=== PATIENT | male | born 1950 | race Caucasian/White ===

== ENCOUNTER 2020-09-18 05:26 | Inpatient (IN) ==
--- NOTE | 2020-09-12 11:50 | Anesthesiology Consultation ---
Date of Service September 12, 2020 Assessment & Plan (1) Encounter for pre-operative examination: Chart Review Chart Review: Acceptable Risk for Surgery (pending preop Covid testing results ) and Patient NOT seen in Pre Admission Testing Discussed pacemaker with Dr. Boyd- no rep needed- pt has only pacemaker- no noted defibrillator. Per nursing assessment 09/12/20, patient denies any recent travel. No known Covid positive contacts or Covid related symptoms. No known Covid infection in the past 90 days. Pt scheduled for preop Covid testing 09/13/[address] [facility]= will await results. Pt see by cardio 12/14/19= pt seen for routine follow up. Pt has been feeling well overall. Patient describes stable cardiac signs and symptoms. In the fall of 2017, he has been seen by EP to make sure pacemaker settings were optimized in an effort to maximize battery longevity. ECHO in 2018 confirmed presence of normal LV systolic function despite frequent RV pacing. Pt described stable activity tolerance. Plan follow up in one year (around 11/2020) and continue with routine device checks. History Surgery Operation Date: 09/18/20 08:50 Proposed Procedures p Open Repair Ventral Hernia Possible Mesh - Latonia Castillo MD Height/Weight Height: 6 ft Weight: 97.976 kg Allergies Allergy/AdvReac Type Severity Reaction Status Date / Time No Known Allergies Allergy Unknown Verified 09/12/20 10:15 Medications Home Medications Medication Instructions Recorded Confirmed Last Taken aspirin [Aspirin Low Dose] 81 mg PO QAM 06/29/20 09/12/20 06/28/20 atorvastatin 40 mg PO QAM 06/29/20 09/12/20 06/28/20 ezetimibe [Zetia] 10 mg PO QAM 06/29/20 09/12/20 06/28/20 lisinopril 5 mg PO QAM 06/29/20 09/12/20 06/28/20 niacin 1,000 mg PO HS 06/29/20 09/12/20 06/28/20 pantoprazole 40 mg PO QAM 06/29/20 09/12/20 06/28/20 tamsulosin [Flomax] 0.4 mg PO PM 06/29/20 09/12/20 06/28/20 Past Medical History Medical History (Updated 09/12/20 @ 13:37 by Jing Cornejo PA-C) BPH (benign prostatic hyperplasia) CAD (coronary artery disease) Last cardiac cath 2003- showed 2 vessel heart disease with 100% occlusion of RCA and 60% occlusion of mid LAD and 40% stenosis of Cx. Complete heart block "Transient high grade AV block" dx'ed at time of syncope with head trauma. Pt is s/p pacemaker > follows Dr. Lewis Dyslipidemia GERD (gastroesophageal reflux disease) Hypertension Kidney stones passed on own once, litho second time Pacemaker placed November 2017/ Francesca> [employer] > last checked 08/15/20 > follows with Dr. Lewis with [facility] Prediabetes Hgb A1C 6.2 in 04/2020 Pulmonary nodule Multiple. Following with pulmonology - monitoring SAH (subarachnoid hemorrhage) November [address] [facility] ED with syncopal episode resulting in head trauma. Transferred to [facility]. High-grade AV block with assc. hypotension found, ultimately had pacer placed 11/2017. Seizure Pt denies> reports they thought he had one when passed out from AV block until they knew what it was Past Surgical History Surgical History History of arthroscopy left History of cardiac cath 15 yrs ago > no stents History of colonoscopy History of lithotripsy History of tooth extraction History of umbilical hernia repair Hx of laparoscopy for incisional hernia > no longer has mesh SBO (small bowel obstruction) with repair [place] teeth extracted Social History Smoking Status: Never smoker Do You Dip or Chew Tobacco: No Hx Alcohol Use: No Hx Substance Use: No substance use type: does not use Testing Laboratory Results 08/31/20= WBC: 6.25 H/H: 12.6/38.8 PLATELETS: 186 SODIUM: 141 POTASSIUM: 4.1 CHLORIDE: 105 CO2: 27 BUN: 10 CREATININE: 0.9 GLUCOSE: 94 Electrocardiogram Date: 08/31/20 SR at 62bpm. AV sequential or dual chamber electronic pacemaker. Echocardiogram Date: 02/24/18 EF: 55-60% LV Function: normal RWMA: + none Other Findings: + LVH (mild/concentric ) and + diastolic dysfunction (Grade I ) Sigmoid appearing septum. Trileaflet AV with a heavily calcified noncoronary cusp with reduced systolic excursion. No hemodynamically significant stenosis. No AR. Other Testing Pacer check 08/15/20= [employer] Pacemaker. Implanted December 18, 2017. Atrial paced 18%. RV paced 92%. Battery life estimated longevity 10 years. Pacemaker mode VDIR. Summary: "Normal dual chamber pacemaker function. Next Remote Monitoring Transmission is scheduled for 3 months." PET scan 06/07/20= Minimal low level uptake is associated with the largest pulmonary nodule in the medial right lower lobe. Malignant neoplasm cannot be excluded. Nonspecific uptake within right supraclavicular, mediastinal, left hilar and left inguinal lymph nodes. (Pt following with pulm and planning for bronchoscopy after hernia repair per 08/10/20 telephone note) Chest CT 05/25/20= Unchanged appearance of the lungs with multiple (> 20) avelina llate shaped pulmonary nodules oriented along the bronchovascular markings, some of which are tubular branching in expected regions of vasculature. These findings may be due to chronic small airway inflammation, metastasis or vasculitis/small-vessel disease. Couple intermixed ground-glass attenuating nodules are likely of the same etiology, just less dense. Chronic bronchitis.
[2020-09-18] MEDS ORDERED: ceFAZolin 2000MG 2,000 MG/15 ML SYR IV SCH (06:00)
[2020-09-18] MEDS ORDERED: LACTATED RINGER'S 1,000 ML IV SCH ×2 (06:00→06:45)
[2020-09-18] MEDS ORDERED: fentaNYL citrate 100 MCG/2 ML VIAL ONE ×2 (06:39→08:05)
[2020-09-18] MEDS ORDERED: ONDANSETRON INJ 2 MG/ML 2 ML VIAL ONE (06:39)
[2020-09-18] MEDS ORDERED: MIDAZOLAM HCL 1 MG/ML 2ML VIAL ONE (06:39)
[2020-09-18] MEDS ORDERED: LIDOCAINE HCL 2% 2 ML VIAL/AMP(20MG/ML) INFIL ONE (06:39)
[2020-09-18] MEDS ORDERED: PROPOFOL IV EMULSION 10 MG/ML 20 ML VIAL IV ONE (06:39)
[2020-09-18] MEDS ORDERED: HYDROmorphone INJ 1 MG/ML SYRINGE IV PRN ×2 (06:52→10:27)
[2020-09-18] MEDS ORDERED: fentaNYL citrate 100 MCG/2 ML VIAL IV PRN (06:52)
[2020-09-18] MEDS ORDERED: ePHEDrine sulfate 50 MG/ML AMP IV PRN (06:52)
[2020-09-18] MEDS ORDERED: ATROPINE SULFATE 0.1 MG/ML 10ML SYR IV PRN (06:52)
[2020-09-18] MEDS ORDERED: ONDANSETRON INJ 2 MG/ML 2 ML VIAL IV PRN (06:52)
[2020-09-18] MEDS ORDERED: ceFAZolin 2000MG 2,000 MG/15 ML SYR IV ONE (06:55)
--- NOTE | 2020-09-18 06:55 | History & Physical Bridge Note ---
Date of Service September 18, 2020 History & Physical Bridge Note I have examined the patient, reviewed the History & Physical and in the interval since the performance of the History & Physical I have noted the following changes of clinical significance: no changes noted
[2020-09-18] MEDS ORDERED: LIDOCAINE HCL 1% 20 ML VIAL ONE (06:59)
[2020-09-18] MEDS ORDERED: BACITRACIN OINT 15 GM TUBE ONE (06:59)
[2020-09-18] MEDS ORDERED: BUPIVACAINE 0.5 % 5 MG/1 ML MPF 30ML VIAL ONE (06:59)
[2020-09-18] MEDS ORDERED: ALBUTEROL HFA INHALER 8.5 GM ONE (07:21)
[2020-09-18] MEDS ORDERED: NEOSTIGMINE METHYLSULFATE 5 MG/5 ML SYR ONE (07:46)
[2020-09-18] MEDS ORDERED: GLYCOPYRROLATE 0.2 MG/ML VIAL ONE (07:46)
[2020-09-18] MEDS ORDERED: DEXAMETHASONE SOD INJ 4 MG/ML VIAL ONE (07:47)
[2020-09-18] MEDS ORDERED: ROCURONIUM BROMIDE 10 MG/ML 5 ML VIAL IV ONE ×3 (07:55→08:18)
--- NOTE | 2020-09-18 09:21 | Post Operative Brief Note ---
Immediate Post Op Note v1 Date of Surgery September 18, 2020 Pre & Post Diagnosis Operation Date: 09/18/20 07:00 Pre-Op Diagnosis: Recurrent Ventral Incisional Hernia Post-Op Diagnosis: Recurrent Ventral Incisional Hernia I identified the patient and participated in the time-out.: Yes Procedure Operation Date: 09/18/20 07:00 Actual Procedures p Open Ventral Hernia Repair with Mesh(Not Applicable) - Latonia Castillo MD Surgeon Latonia Castillo MD Video Rental Clerk TARIK Mckeon Estimated Blood Loss 20 Findings Consistent with Post-Op Diagnosis recurrent ventral hernia size about 3x4 inches Fluids 1000ml Specimens hernia sac Anesthesia Type General Complications none Disposition Accompanied Patient To Recovery: Yes Disposition: Recovery Room Overlapping Procedure I was immediately available: during the entire case.
--- NOTE | 2020-09-18 09:50 | Anesthesiology Progress Note ---
Date of Service September 18, 2020 Anesthesia Post Procedure Vital Signs Vital Signs: Temp Pulse Pulse Resp BP Pulse Ox 09/18/20 09:45 88 16 119/69 96 09/18/20 09:35 85 21 123/75 94 09/18/20 09:29 36.3 C L 90 16 119/76 96 09/18/20 06:00 36.4 C L 92 H 20 135/83 97 Pain Intensity Abdomen: Pain Intensity: 4 Transfer of Care Handoff Completed per policy Notes Mental Status: alert / awake / arousable and participated in evaluation Patient Amnestic to Procedure: Yes Nausea / Vomiting: adequately controlled Pain: adequately controlled Airway Patency, RR, SpO2: stable & adequate BP & HR: stable & adequate Hydration State: stable & adequate Anesthetic Complications: no major complications apparent and Pt Satisfied with anesthetic care
[2020-09-18] MEDS: LACTATED RINGER'S 1,000 ML IV SCH ×2 (10:15→19:56)
[2020-09-18] MEDS ORDERED: oxyCODONE/ACETAMINOPHEN 5mg/325mg TAB PO PRN ×2 (10:27→11:25)
[2020-09-18] MEDS ORDERED: ACETAMINOPHEN 325 MG TAB PO PRN (11:25)
--- NOTE | 2020-09-18 11:36 | Operative Report (OR) ---
DATE OF OPERATION: 09/18/2020 PREOPERATIVE DIAGNOSIS: Recurrent ventral hernia. POSTOPERATIVE DIAGNOSIS: Recurrent ventral hernia. OPERATION: Open repair of ventral hernia with mesh. SURGEON: Latonia Castillo MD. laboratory chemical assistant: TARIK Mckeon ANESTHESIA: General. ESTIMATED BLOOD LOSS: About 20 mL. FINDINGS: Recurrent ventral hernia, the hernia size about 3 x 4 inch. COMPLICATIONS: None. INDICATIONS FOR THE PROCEDURE: This is a 69-year-old gentleman who had a ventral hernia repair with mesh and later on patient had the mesh removed because of infected mesh, and now the patient presented with recurrent ventral hernia. The patient is required to do open repair of recurrent ventral hernia with mesh. I did talk to the patient about the benefit, the risk, alternate procedure. I indicated the risks may include but not limited to such as bleeding, infection, hernia recurrence, bowel obstruction, fistula, infected mesh, complication related to the mesh, DVT, myocardial infarction, stroke, and even . The patient understands. He signed informed consent and I answered all questions. DETAILS OF PROCEDURE: We brought the patient to the OR, put the patient in the supine position. The patient received SCD on bilateral legs to prevent DVT. Also, patient received 2 grams of Ancef IV for prophylactic antibiotic. The patient received general anesthesia without difficulty and also the patient received Song catheter insertion. The abdomen was prepped and draped in routine sterile fashion. After timeout, we made a transverse incision on the middle abdomen and we got in the abdominal cavity without difficulty. Dissected some scar and then we found the patient actually had 3 ventral hernias, one on the right side, one on the left side and one below the umbilicus. So, there were hernias. Once we opened the hernia sac, we got in the abdomen without difficulty and we reduced all the hernia contents and the small bowel back to abdominal cavity. Now we removed all the hernia sacs. Once we combined the 3 ventral hernias to one, we measured 3 x 4 inches as the hernia size, so I decided to choose 5 x 7 inches mesh for overlapping the hernia. Then, I used 0 Ethibond, sutured the fascia to the hernia interruptedly at 360-degree and then we tied each suture one by one, the mesh sat nicely, no tension. Hemostasis was obtained. I then closed the subcutaneous layer by using 2-0 Vicryl continuous running, closed skin by using staple. Then, we put the dressing on. The patient tolerated the procedure well. All instrument, needle and sponge count were correct x2 at the end of the case. The patient was transferred to recovery room in stable condition and also the specimen was sent to pathology. After the procedure, I did talk to the patient about the OR finding and the procedure we did. Also, the patient agreed to be admitted to the hospital overnight. trade sales assistant Haily is necessary for traction and exposure of this procedure. I attest to the content of the Intraoperative Record and any orders documented therein. Any exceptions are noted below. ADALBERTO
[2020-09-18] MEDS: oxyCODONE/ACETAMINOPHEN 5mg/325mg TAB PO PRN (21:01)
[2020-09-18] MEDS: NIACIN EXTENDED REL 500 MG TABCR PO SCH (21:02)
[2020-09-18] MEDS: DOCUSATE SODIUM 100 MG CAP PO SCH (21:02)
[2020-09-18] MEDS: TAMSULOSIN HCL 0.4 MG CAP PO SCH (21:02)
[2020-09-19 07:43] LABS: Creatinine Clr Calc Pharmacy 123.7 ml/min; Est GFR (African American) 112.3; Est GFR (Non-African American) 96.9
--- NOTE | 2020-09-19 08:08 | Anesthesiology Progress Note ---
Date of Service September 19, 2020 Anesthesia Post Procedure Vital Signs Vital Signs: Temp Pulse Pulse Resp BP BP Pulse Ox 09/19/20 06:58 36.9 C 62 16 125/70 94 09/19/20 04:09 36.6 C 60 18 99/55 L 96 09/18/20 22:26 36.7 C 60 16 116/67 96 09/18/20 19:00 36.5 C 90 20 123/80 96 09/18/20 15:15 36.7 C 88 20 100/64 95 09/18/20 12:15 36.6 C 95 H 18 110/68 92 09/18/20 11:21 18 102/62 91 09/18/20 10:45 36.4 C L 85 16 97/61 L 93 09/18/20 10:15 36.8 C 86 16 95/63 L 93 09/18/20 10:05 80 17 110/57 L 96 09/18/20 09:55 36.2 C L 83 17 109/62 95 09/18/20 09:45 88 16 119/69 96 09/18/20 09:35 85 21 123/75 94 09/18/20 09:29 36.3 C L 90 16 119/76 96 Pain Intensity Abdomen: Pain Intensity: 2 Notes Mental Status: alert / awake / arousable and participated in evaluation Patient Amnestic to Procedure: Yes Nausea / Vomiting: see Notes below Pain: adequately controlled Airway Patency, RR, SpO2: stable & adequate BP & HR: stable & adequate Hydration State: stable & adequate Anesthetic Complications: no major complications apparent and Pt Satisfied with anesthetic care
[2020-09-19] MEDS: EZETIMIBE 10 MG TABLET PO SCH (09:19)
[2020-09-19] MEDS: DOCUSATE SODIUM 100 MG CAP PO SCH ×2 (09:19→20:52)
[2020-09-19] MEDS: PANTOprazole 40 MG TAB PO SCH (09:19)
[2020-09-19] MEDS: ASPIRIN 81 MG ECTAB PO SCH (09:19)
[2020-09-19] MEDS: ATORVASTATIN 40 MG TAB PO SCH (09:19)
[2020-09-19] MEDS: lisinopril 5 MG TAB PO SCH (09:19)
--- NOTE | 2020-09-19 09:37 | Surgery Progress Note ---
Date of Service F/U S/P open repair large ventral hernia with mesh, pt is doing better, still have some incision pain, pt denies fever, September 19, 2020 Assessment & Plan (1) Incisional hernia: pt is a 69 year-old male who was admitted to hospital is post-op open repair large ventral hernia with mesh, IMP: S/P open repair large ventral hernia with mesh, POD 1, I update about OR finding and the procedure pt had, pt understood, I answered all questions, pt is doing better, less incision pain, pt will stay one more day for good control incision pain, OOB discharge home tomorrow, will F/U, Present on Admission?: Yes Admission and Anticipated Discharge Date Admission Date: September 18, 2020 Physical Exam Constitutional: WD/WN, vitals as above well developed and well nourished Eyes: PERRL, conjunctivae normal, anicteric sclerae ENMT: external ear and nose normal, oropharynx normal Neck: trachea midline, no thyromegaly Respiratory: normal respiratory effort, lungs clear to auscultation Cardiovascular: RRR, no murmur, no edema Rate/Rhythm: regular rate and regular rhythm Gastrointestinal (Abdomen): Percussion/Palpation: abdomen soft mild tenderness at abdomen, no rebound pain, the incision intact, no redness, no drainage, Musculoskeletal: no cyanosis or clubbing, extremities motor strength 5/5 Skin: no rashes, warm and dry Neurologic: patellar DTR's 2+ bilat, sensation intact Psychiatric: Orientation: alert and oriented x 3 Results & Data ([facility]) Vital Signs (Past 12 Hours) Vital Signs Temp Pulse Resp BP Pulse Ox 09/19/20 06:58 36.9 C 62 16 125/70 94 09/19/20 04:09 36.6 C 60 18 99/55 L 96 09/18/20 22:26 36.7 C 60 16 116/67 96
[2020-09-19] MEDS ORDERED: POLYETHYLENE (MIRALAX) 17 GM PACK PO SCH (09:45)
[2020-09-19] MEDS ORDERED: ENOXAPARIN INJ 40 MG/0.4 ML SYR SQ SCH (12:00)
[2020-09-19] MEDS: LACTATED RINGER'S 1,000 ML IV SCH (14:14)
[2020-09-19] MEDS ORDERED: METOCLOPRAMIDE HCL 10 MG TABLET PO ONE (19:30)
[2020-09-19] MEDS: NIACIN EXTENDED REL 500 MG TABCR PO SCH (20:52)
[2020-09-19] MEDS: TAMSULOSIN HCL 0.4 MG CAP PO SCH (20:53)
[2020-09-19] MEDS: ONDANSETRON INJ 2 MG/ML 2 ML VIAL IV PRN (23:45)
[2020-09-20] MEDS: LACTATED RINGER'S 1,000 ML IV SCH (01:45)
[2020-09-20] MEDS: HYDROmorphone INJ 1 MG/ML SYRINGE IV PRN ×2 (01:49→11:45)
[2020-09-20] MEDS: ONDANSETRON INJ 2 MG/ML 2 ML VIAL IV PRN (06:02)
[2020-09-20 07:14] LABS: Basophils # (auto) 0.02 K/uL (0-0.2); Basophils % (auto) 0.2 %; Eosinophils # (auto) 0.03 K/uL (0-0.5); Eosinophils % (auto) 0.3 %; Hematocrit (blood only) 39.4 % (42-52); Immature Granulocytes # (auto) 0.02 K/uL (0.00-0.02); Immature Granulocytes % (auto) 0.2 %; Lymphocytes # (auto) 0.74 K/uL (1.2-3.4); Lymphocytes % (auto) 6.7 %; Mean Corpuscular Hemoglobin 27.8 pg (25-34); Mean Corpuscular Volume 84.2 fL (80-100); Mean Platelet Volume 9.7 fL (7.4-10.4); Monocytes # (auto) 0.71 K/uL (0.11-0.59); Monocytes % (auto) 6.4 %; Neutrophils # (auto) 9.53 K/uL (1.4-6.5); Neutrophils % (auto) 86.2 %; Platelet Count 206 K/uL (130-400); RDW Coefficient of Variation 14.8 % (11.5-14.5); RDW Standard Deviation 46.1 fL (36.4-46.3); Red Blood Count 4.68 M/uL (4.7-6.1); White Blood Count 11.05 K/uL (4.8-10.8)
--- NOTE | 2020-09-20 07:32 | Surgery Progress Note ---
Date of Service F/U S/P open repair large ventral hernia with mesh, POD 2 pt had 2 time small vomiting, not pass gas or BM yet, pt has no significant abdominal pain, no fever, September 20, 2020 Assessment & Plan (1) Incisional hernia: pt is a 69 year-old male who was admitted to hospital is post-op open repair large ventral hernia with mesh, IMP: S/P open repair large ventral hernia with mesh, POD 1, I update about OR finding and the procedure pt had, pt understood, I answered all questions, pt is doing better, less incision pain, pt will stay one more day for good control incision pain, OOB discharge home tomorrow, will F/U, 09/20/2020 7:27AM F/U S/P open repair large ventral hernia with mesh POD 2 pt developed post-op ileus /bowel obstruction, conservative treatment first, NPO, IV fluid, NG tube, I informed pt that he developed ileus or bowel obstruction possible caused by old scar, may need surgery treatment if conservative treatment failure, pt understood, he agrees with the treatment plan, I answered all questions, I insert NG tube some fluid came out, pt tolerated well, will F/U Admission and Anticipated Discharge Date Admission Date: September 18, 2020 Physical Exam Constitutional: WD/WN, vitals as above well developed and well nourished Eyes: PERRL, conjunctivae normal, anicteric sclerae ENMT: external ear and nose normal, oropharynx normal Neck: trachea midline, no thyromegaly Respiratory: normal respiratory effort, lungs clear to auscultation Cardiovascular: RRR, no murmur, no edema Rate/Rhythm: regular rate and regular rhythm Gastrointestinal (Abdomen): Percussion/Palpation: abdomen soft mild distend, mild tenderness, no rebound pain, the incision intact, no redness, BS + Musculoskeletal: no cyanosis or clubbing, extremities motor strength 5/5 Skin: no rashes, warm and dry Neurologic: patellar DTR's 2+ bilat, sensation intact Psychiatric: Orientation: alert and oriented x 3 Results & Data ([facility]) Vital Signs (Past 12 Hours) Vital Signs Temp Pulse Pulse Resp BP Pulse Ox 09/20/20 07:03 36.8 C 101 H 18 112/71 94 09/19/20 22:52 36.6 C 90 20 107/68 94 Laboratory Results Abnormal lab results 09/20/20 Range/Units 06:55 WBC 11.05 H (4.8-10.8) K/uL RBC 4.68 L (4.7-6.1) M/uL Hgb 13.0 L (14.0-18.0) g/dL Hct 39.4 L (42-52) % RDW Coeff of [place] 14.8 H (11.5-14.5) % Neut # (Auto) 9.53 H (1.4-6.5) K/uL Lymph # (Auto) 0.74 L (1.2-3.4) K/uL [place] # (Auto) 0.71 H (0.11-0.59) K/uL Diagnostic Findings KUB_ ileus, small bowel dilatation
[2020-09-20 07:43] LABS: Albumin Level 3.2 gm/dl (3.4-5.0); Calcium 8.9 mg/dl (8.5-10.1); Creatinine Clr Calc Pharmacy 121.9 ml/min; Est GFR (African American) 111.6; Est GFR (Non-African American) 96.3; Potassium 3.7 mmol/L (3.5-5.1)
[2020-09-20 07:46] LABS: Albumin Globulin Ratio 0.9 (0.9-2); Bilirubin,Total 1.2 mg/dl (0.2-1); Globulin 3.5 gm/dl (2.5-4.0); Total Protein 6.7 gm/dl (6.4-8.2)
--- NOTE | 2020-09-20 07:53 | XRay Report ---
KUB HISTORY: Vomiting COMPARISON: Abdomen and pelvis CT 06/29/2020. FINDINGS: Dilated gas-filled loops of large and small bowel are seen throughout the abdomen. There ar e mid abdominal skin shamar noted suggesting recent postoperative change. There is gas within the re ctum. Therefore, these findings favor a postoperative ileus. Large amount of stool within the proxima l colon is also noted. No renal calculi. No ureteral calculi. No pneumoperitoneum or pneumatosis. IMPRESSION: Dilated gas-filled loops of large and small bowel seen throughout the abdomen. Findings favor a posto perative ileus. ACT 112: Negative or not required by law. Electronically signed by: Meir Mendez M.D. 09/20/2020 7:52 AM
[2020-09-20] MEDS: ceFAZolin 1000MG 1,000 MG/7.5 ML SYR IV SCH ×2 (09:02→16:27)
[2020-09-20] MEDS: D5W AND 1/2NSS + 20MEQ KCL 20 MEQ/1,000 ML BAG IV SCH ×2 (09:02→18:09)
[2020-09-20] MEDS ORDERED: Nursing to Pharmacy Communication SCH (10:30)
[2020-09-20] MEDS: lisinopril 5 MG TAB PO SCH (11:33)
[2020-09-20] MEDS: EZETIMIBE 10 MG TABLET PO SCH (11:34)
[2020-09-20] MEDS: DOCUSATE SODIUM 100 MG CAP PO SCH (11:35)
[2020-09-20] MEDS: ASPIRIN 81 MG ECTAB PO SCH (11:35)
[2020-09-20] MEDS: ATORVASTATIN 40 MG TAB PO SCH (11:35)
[2020-09-20] MEDS: PANTOprazole 40 MG TAB PO SCH (11:36)
[2020-09-20] MEDS: DOCUSATE SODIUM SYRUP 100 MG/10 ML UDC NG SCH ×2 (12:13→21:02)
[2020-09-20] MEDS: ASPIRIN 81 MG CHEW NG SCH (12:13)
[2020-09-20] MEDS: LANSOPRAZOLE 30 MG SOLTAB NG SCH (12:14)
[2020-09-20] MEDS: ATORVASTATIN 40 MG TAB NG SCH (12:15)
[2020-09-20] MEDS ORDERED: bisacodyL 10 MG SUPP PR STA (16:18)
--- NOTE | 2020-09-20 16:21 | Surgery Progress Note ---
Date of Service pt is doing better, no significant abdominal pain, NG 300ml, September 20, 2020 Assessment & Plan (1) Incisional hernia: pt is a 69 year-old male who was admitted to hospital is post-op open repair large ventral hernia with mesh, IMP: S/P open repair large ventral hernia with mesh, POD 1, I update about OR finding and the procedure pt had, pt understood, I answered all questions, pt is doing better, less incision pain, pt will stay one more day for good control incision pain, OOB discharge home tomorrow, will F/U, 09/20/2020 7:27AM F/U S/P open repair large ventral hernia with mesh POD 2 pt developed post-op ileus /bowel obstruction, conservative treatment first, NPO, IV fluid, NG tube, I informed pt that he developed ileus or bowel obstruction possible caused by old scar, may need surgery treatment if conservative treatment failure, pt understood, he agrees with the treatment plan, I answered all questions, I insert NG tube some fluid came out, pt tolerated well, will F/U 09/20/2020 4:22PM. KUB_IMPRESSION: Dilated gas-filled loops of large and small bowel seen throughout the abdomen. Findings favor a postoperative ileus. doing better, continue treatment, repeat labs in am, will F/U Admission and Anticipated Discharge Date Admission Date: September 20, 2020 Physical Exam Constitutional: WD/WN, vitals as above well developed and well nourished Eyes: PERRL, conjunctivae normal, anicteric sclerae ENMT: external ear and nose normal, oropharynx normal Neck: trachea midline, no thyromegaly Respiratory: normal respiratory effort, lungs clear to auscultation Cardiovascular: RRR, no murmur, no edema Rate/Rhythm: regular rate and regular rhythm Gastrointestinal (Abdomen): Percussion/Palpation: abdomen soft mild distend, no rebound pain, BS + Musculoskeletal: no cyanosis or clubbing, extremities motor strength 5/5 Skin: no rashes, warm and dry Neurologic: patellar DTR's 2+ bilat, sensation intact Psychiatric: Orientation: alert and oriented x 3 Results & Data ([facility]) Vital Signs (Past 12 Hours) Vital Signs Temp Pulse Resp BP Pulse Ox 09/20/20 15:06 36.6 C 76 18 103/70 92 09/20/20 07:03 36.8 C 101 H 18 112/71 94
[2020-09-20] MEDS: oxyCODONE/ACETAMINOPHEN 5mg/325mg TAB PO PRN ×2 (18:14→21:37)
[2020-09-20] MEDS: NIACIN EXTENDED REL 500 MG TABCR PO SCH (19:34)
[2020-09-20] MEDS: TAMSULOSIN HCL 0.4 MG CAP PO SCH (19:34)
[2020-09-21] MEDS: ceFAZolin 1000MG 1,000 MG/7.5 ML SYR IV SCH ×3 (00:07→15:36)
[2020-09-21] MEDS: HYDROmorphone INJ 1 MG/ML SYRINGE IV PRN (00:41)
[2020-09-21] MEDS: D5W AND 1/2NSS + 20MEQ KCL 20 MEQ/1,000 ML BAG IV SCH ×2 (04:29→15:04)
[2020-09-21] MEDS: oxyCODONE/ACETAMINOPHEN 5mg/325mg TAB PO PRN (05:46)
[2020-09-21 05:53] LABS: Basophils # (auto) 0.02 K/uL (0-0.2); Basophils % (auto) 0.2 %; Eosinophils # (auto) 0.29 K/uL (0-0.5); Eosinophils % (auto) 3.1 %; Hematocrit (blood only) 39.4 % (42-52); Hemoglobin 13.4 g/dL (14.0-18.0); Immature Granulocytes # (auto) 0.02 K/uL (0.00-0.02); Immature Granulocytes % (auto) 0.2 %; Lymphocytes # (auto) 0.67 K/uL (1.2-3.4); Lymphocytes % (auto) 7.1 %; Mean Corpuscular Hemoglobin 28.8 pg (25-34); Mean Corpuscular Volume 84.5 fL (80-100); Monocytes # (auto) 1.41 K/uL (0.11-0.59); Neutrophils # (auto) 6.99 K/uL (1.4-6.5); Neutrophils % (auto) 74.4 %; Platelet Count 207 K/uL (130-400); RDW Coefficient of Variation 14.9 % (11.5-14.5); RDW Standard Deviation 46.6 fL (36.4-46.3); Red Blood Count 4.66 M/uL (4.7-6.1)
[2020-09-21 06:24] LABS: BUN Creatinine Ratio 17.9 (10-20); Calcium 8.7 mg/dl (8.5-10.1); Creatinine Clr Calc Pharmacy 131.3 ml/min; Est GFR (African American) 115.1; Est GFR (Non-African American) 99.3; Potassium 4.1 mmol/L (3.5-5.1)
[2020-09-21 06:26] LABS: Albumin Globulin Ratio 0.9 (0.9-2); Bilirubin,Total 0.9 mg/dl (0.2-1); Globulin 3.5 gm/dl (2.5-4.0); Total Protein 6.5 gm/dl (6.4-8.2)
--- NOTE | 2020-09-21 08:24 | XRay Report ---
KUB HISTORY: Acute generalized abdominal pain with abdominal distention To R/O ileus COMPARISON: KUB 09/20/2020 FINDINGS: Transversely oriented skin shamar of the lower abdomen redemonstrated. An enteric tube pro jects over the left midabdomen the expected location of the distended mid to distal gastric body. Dis tended loops of large and small bowel redemonstrated with large bowel loops measuring up to approxima tely 11 cm, previously 10 cm. No renal calculi. No ureteral calculi. No pneumoperitoneum or pneumato sis. No fracture. IMPRESSION: Persistent gaseous distention of both large and small bowel suggestive of postoperative ileus. ACT 112: Negative or not required by law. The above report was generated using voice recognition software. It may contain grammatical, syntax o r spelling errors. Electronically signed by: Cruz Hernández M.D. 09/21/2020 8:22 AM
[2020-09-21] MEDS ORDERED: METOCLOPRAMIDE HCL INJ 5 MG/ML 2 ML VIAL IV STA (09:12)
[2020-09-21] MEDS: ATORVASTATIN 40 MG TAB NG SCH (09:33)
[2020-09-21] MEDS: DOCUSATE SODIUM SYRUP 100 MG/10 ML UDC NG SCH ×2 (09:33→20:28)
[2020-09-21] MEDS: ASPIRIN 81 MG CHEW NG SCH (09:34)
[2020-09-21] MEDS: LANSOPRAZOLE 30 MG SOLTAB NG SCH (09:34)
[2020-09-21] MEDS: lisinopril 5 MG TAB PO SCH (09:34)
[2020-09-21] MEDS: EZETIMIBE 10 MG TABLET PO SCH (09:34)
--- NOTE | 2020-09-21 13:00 | Surgery Progress Note ---
Date of Service pt is doing better, passed BM last night, no nausea, no vomiting, NG tube- 550ml. September 21, 2020 Assessment & Plan (1) Incisional hernia: pt is a 69 year-old male who was admitted to hospital is post-op open repair large ventral hernia with mesh, IMP: S/P open repair large ventral hernia with mesh, POD 1, I update about OR finding and the procedure pt had, pt understood, I answered all questions, pt is doing better, less incision pain, pt will stay one more day for good control incision pain, OOB discharge home tomorrow, will F/U, 09/20/2020 7:27AM F/U S/P open repair large ventral hernia with mesh POD 2 pt developed post-op ileus /bowel obstruction, conservative treatment first, NPO, IV fluid, NG tube, I informed pt that he developed ileus or bowel obstruction possible caused by old scar, may need surgery treatment if conservative treatment failure, pt understood, he agrees with the treatment plan, I answered all questions, I insert NG tube some fluid came out, pt tolerated well, will F/U 09/20/2020 4:22PM. KUB_IMPRESSION: Dilated gas-filled loops of large and small bowel seen throughout the abdomen. Findings favor a postoperative ileus. doing better, continue treatment, repeat labs in am, will F/U 09/21/2020 1:00PM doing better, passed BM, continue treatment, keep the NG tube for one more day, will F/U Admission and Anticipated Discharge Date Admission Date: September 20, 2020 Physical Exam Constitutional: WD/WN, vitals as above well developed and well nourished Eyes: PERRL, conjunctivae normal, anicteric sclerae ENMT: external ear and nose normal, oropharynx normal Neck: trachea midline, no thyromegaly Respiratory: normal respiratory effort, lungs clear to auscultation Cardiovascular: RRR, no murmur, no edema Rate/Rhythm: regular rate and regular rhythm Gastrointestinal (Abdomen): normal bowel sounds, soft, nontender, no hepatosplenomegaly Percussion/Palpation: abdomen soft NT, ND BS + Musculoskeletal: no cyanosis or clubbing, extremities motor strength 5/5 Skin: no rashes, warm and dry Neurologic: patellar DTR's 2+ bilat, sensation intact Psychiatric: Orientation: alert and oriented x 3 Results & Data ([facility]) Vital Signs (Past 12 Hours) Vital Signs Temp Pulse Resp BP Pulse Ox 09/21/20 07:27 36.6 C 79 18 117/74 94 Laboratory Results Abnormal lab results 09/21/20 09/21/20 Range/Units 05:24 05:24 RBC 4.66 L (4.7-6.1) M/uL Hgb 13.4 L (14.0-18.0) g/dL Hct 39.4 L (42-52) % RDW Std Deviation 46.6 H (36.4-46.3) fL RDW Coeff of [place] 14.9 H (11.5-14.5) % Neut # (Auto) 6.99 H (1.4-6.5) K/uL Lymph # (Auto) 0.67 L (1.2-3.4) K/uL [place] # (Auto) 1.41 H (0.11-0.59) K/uL Sodium 135 L (136-145) mmol/L Glucose 121 H (70-99) mg/dl AST 14 L (15-37) U/L Albumin 3.0 L (3.4-5.0) gm/dl Diagnostic Findings KUB HISTORY: Acute generalized abdominal pain with abdominal distention To R/O ileus COMPARISON: KUB 09/20/2020 FINDINGS: Transversely oriented skin shamar of the lower abdomen redemonstrated. An enteric tube projects over the left midabdomen the expected l ocation of the distended mid to distal gastric body. Distended loops of large and small bowel redemonstrated with large bowel loops measuring up to approximately 11 cm, previously 10 cm. No renal calculi. No ureteral calculi. No pneumoperitoneum or pneumatosis. No fracture. IMPRESSION: Persistent gaseous distention of both large and small bowel suggestive of postoperative ileus.
[2020-09-21] MEDS: ACETAMINOPHEN 325 MG TAB PEG PRN (17:53)
[2020-09-21] MEDS: NIACIN EXTENDED REL 500 MG TABCR PO SCH (20:31)
[2020-09-21] MEDS: TAMSULOSIN HCL 0.4 MG CAP PO SCH (20:31)
[2020-09-22] MEDS: ceFAZolin 1000MG 1,000 MG/7.5 ML SYR IV SCH ×4 (00:07→23:17)
[2020-09-22] MEDS: ACETAMINOPHEN 325 MG TAB PEG PRN (00:20)
[2020-09-22] MEDS: D5W AND 1/2NSS + 20MEQ KCL 20 MEQ/1,000 ML BAG IV SCH ×3 (00:24→20:46)
[2020-09-22] MEDS: DOCUSATE SODIUM SYRUP 100 MG/10 ML UDC NG SCH ×2 (07:53→20:46)
[2020-09-22] MEDS: ATORVASTATIN 40 MG TAB NG SCH (07:54)
[2020-09-22] MEDS: ASPIRIN 81 MG CHEW NG SCH (07:54)
[2020-09-22] MEDS: lisinopril 5 MG TAB PO SCH (07:56)
[2020-09-22] MEDS: LANSOPRAZOLE 30 MG SOLTAB NG SCH (07:56)
[2020-09-22] MEDS: EZETIMIBE 10 MG TABLET PO SCH (07:57)
[2020-09-22 08:52] LABS: Basophils # (auto) 0.01 K/uL (0-0.2); Basophils % (auto) 0.1 %; Eosinophils # (auto) 0.27 K/uL (0-0.5); Hematocrit (blood only) 37.9 % (42-52); Hemoglobin 12.8 g/dL (14.0-18.0); Immature Granulocytes # (auto) 0.01 K/uL (0.00-0.02); Immature Granulocytes % (auto) 0.1 %; Lymphocytes # (auto) 0.69 K/uL (1.2-3.4); Lymphocytes % (auto) 7.6 %; Mean Corpuscular Hemoglobin 28.1 pg (25-34); Mean Corpuscular Hgb Conc 33.8 g/dL (32-36); Mean Corpuscular Volume 83.1 fL (80-100); Mean Platelet Volume 9.4 fL (7.4-10.4); Monocytes # (auto) 1.01 K/uL (0.11-0.59); Monocytes % (auto) 11.1 %; Neutrophils # (auto) 7.11 K/uL (1.4-6.5); Neutrophils % (auto) 78.1 %; Platelet Count 182 K/uL (130-400); RDW Coefficient of Variation 14.5 % (11.5-14.5); Red Blood Count 4.56 M/uL (4.7-6.1)
[2020-09-22 09:12] LABS: BUN Creatinine Ratio 10.4 (10-20); Calcium 8.8 mg/dl (8.5-10.1); Creatinine Clr Calc Pharmacy 142.3 ml/min; Est GFR (African American) 118.9; Est GFR (Non-African American) 102.6; Potassium 3.9 mmol/L (3.5-5.1)
[2020-09-22] MEDS ORDERED: CHLORASEPTIC 1.4% SOLN 180 ML BTL MT PRN (10:46)
--- NOTE | 2020-09-22 10:54 | Surgery Progress Note ---
Date of Service September 22, 2020 Assessment & Plan (1) Incisional hernia: POD # 4 s/p open repair of recurrent incisional hernia with mesh - minimal pain - abdomen soft but still distended - + bowel function today - NGT with clear output, 200 cc last shift Plan: Tylenol prn pain , limit narcotics clear diet for now pulled out NGT encouraged OOB to chair and ambulation as much as possible to increase GI motility science and operations officer surgeon cover this weekend, thanks, (2) Postoperative ileus: plan as above Dr. Castillo to evaluate pt this afternoon. Admission and Anticipated Discharge Date Admission Date: September 20, 2020 Subjective feeling okay not much pain just pressure and bloating no nausea or vomiting passed gas and liquid stool this morning but not much since has not ambulated hallway today yet Physical Exam Constitutional: WD/WN, vitals as above well developed and well nourished; no acute distress Eyes: PERRL, conjunctivae normal, anicteric sclerae ENMT: external ear and nose normal, oropharynx normal Neck: trachea midline, no thyromegaly Respiratory: normal respiratory effort, lungs clear to auscultation normal respiratory effort; no respiratory distress and no labored breathing Cardiovascular: RRR, no murmur, no edema Rate/Rhythm: regular rate and regular rhythm Gastrointestinal (Abdomen): normal bowel sounds, soft, nontender, no hepatosplenomegaly Inspection/Auscultation: + abdomen distended, + abdominal surgical incision (covered with dry clean dressing) and + hypoactive bowel sounds (some present in lower quadrants bilaterally) Percussion/Palpation: abdomen soft no tenderness, the incision intact, Musculoskeletal: no cyanosis or clubbing, extremities motor strength 5/5 Skin: no rashes, warm and dry Neurologic: patellar DTR's 2+ bilat, sensation intact Psychiatric: A+Ox3, euthymic affect Orientation: alert and oriented x 3 Results & Data ([facility]) Vital Signs (Past 12 Hours) Vital Signs Temp Pulse Resp BP Pulse Ox 09/22/20 07:06 36.6 C 87 16 135/78 96 Laboratory Results Abnormal lab results 09/22/20 09/22/20 Range/Units 08:41 08:41 RBC 4.56 L (4.7-6.1) M/uL Hgb 12.8 L (14.0-18.0) g/dL Hct 37.9 L (42-52) % Neut # (Auto) 7.11 H (1.4-6.5) K/uL Lymph # (Auto) 0.69 L (1.2-3.4) K/uL Hooker # (Auto) 1.01 H (0.11-0.59) K/uL BUN 6 L D (7-18) mg/dl Glucose 115 H (70-99) mg/dl
--- NOTE | 2020-09-22 13:04 | XRay Report ---
KUB HISTORY: f/u postop ileus COMPARISON: KUB 09/21/2020. FINDINGS: Lower abdominal skin shamar are again noted. Nasogastric tube terminates in the gastric an trum. Pacemaker wires are again noted. Redemonstration of the distended loops of large and small padmini l. The similar to prior study. The large bowel measures up to 11 cm in diameter. There is a large opal unt of stool within the proximal colon. There is gas seen within the rectum. No renal calculi. No ur eteral calculi. No pneumoperitoneum or pneumatosis. IMPRESSION: No change in the markedly distended loops of large and small bowel. ACT 112: Negative or not required by law. Electronically signed by: Meir Mendez M.D. 09/22/2020 1:03 PM
[2020-09-22] MEDS: TAMSULOSIN HCL 0.4 MG CAP PO SCH (20:46)
[2020-09-22] MEDS: NIACIN EXTENDED REL 500 MG TABCR PO SCH (20:46)
[2020-09-22] MEDS ORDERED: Nursing to Pharmacy Communication SCH (21:15)
[2020-09-23] MEDS: D5W AND 1/2NSS + 20MEQ KCL 20 MEQ/1,000 ML BAG IV SCH ×2 (05:50→16:43)
[2020-09-23] MEDS: LANSOPRAZOLE 30 MG SOLTAB PO SCH (08:31)
[2020-09-23] MEDS: ATORVASTATIN 40 MG TAB PO SCH (08:31)
[2020-09-23] MEDS: EZETIMIBE 10 MG TABLET PO SCH (08:32)
[2020-09-23] MEDS: ASPIRIN 81 MG CHEW PO SCH (08:32)
[2020-09-23] MEDS: lisinopril 5 MG TAB PO SCH (08:32)
[2020-09-23] MEDS: DOCUSATE SODIUM 100 MG CAP PO SCH (09:14)
--- NOTE | 2020-09-23 09:29 | Surgery Progress Note ---
Date of Service September 23, 2020 Assessment & Plan (1) Postoperative ileus: s/p incisional hernia repair. Bowel function is slowly returning. Distention improved. Will advance to full liquid diet today. Continue to encourage activity/ walking. Present on Admission?: Yes (2) Incisional hernia: s/p repair. Admission and Anticipated Discharge Date Admission Date: September 20, 2020 Subjective Feeling much better. Had multiple loose stools yesterday. Passing more flatus. Tolerating the clear liquids. Pain control is fine. Review of Systems Review of Systems: All systems reviewed & are unremarkable except as noted in HPI & below Physical Exam Constitutional: WD/WN, vitals as above Eyes: PERRL, conjunctivae normal, anicteric sclerae Respiratory: normal respiratory effort, lungs clear to auscultation Cardiovascular: RRR, no murmur, no edema Gastrointestinal (Abdomen): Inspection/Auscultation: abdomen normal to inspection, + abdomen distended, normal bowel sounds and + abdominal surgical incision (clean and intact) Percussion/Palpation: abdomen soft; abdomen nontender and no guarding Neurologic: CN's II-XI intact bilaterally Psychiatric: A+Ox3, euthymic affect Results & Data ([facility]) Vital Signs (Past 12 Hours) Vital Signs Temp Pulse Pulse Resp BP BP Pulse Ox 09/23/20 07:53 36.7 C 78 18 125/77 95 09/22/20 22:40 36.6 C 80 18 136/79 94
[2020-09-23] MEDS: NIACIN EXTENDED REL 500 MG TABCR PO SCH (20:40)
[2020-09-23] MEDS: TAMSULOSIN HCL 0.4 MG CAP PO SCH (20:40)
[2020-09-23] MEDS: ACETAMINOPHEN 325 MG TAB PO PRN (20:41)
[2020-09-24] MEDS: D5W AND 1/2NSS + 20MEQ KCL 20 MEQ/1,000 ML BAG IV SCH ×3 (02:32→23:49)
[2020-09-24] MEDS: ACETAMINOPHEN 325 MG TAB PO PRN ×2 (03:06→21:48)
[2020-09-24 06:27] LABS: Creatinine Clr Calc Pharmacy 174.2 ml/min; Est GFR (African American) 129.2; Est GFR (Non-African American) 111.5
[2020-09-24] MEDS: EZETIMIBE 10 MG TABLET PO SCH (08:24)
[2020-09-24] MEDS: lisinopril 5 MG TAB PO SCH (08:24)
[2020-09-24] MEDS: DOCUSATE SODIUM 100 MG CAP PO SCH ×2 (08:24→20:20)
[2020-09-24] MEDS: LANSOPRAZOLE 30 MG SOLTAB PO SCH (08:24)
[2020-09-24] MEDS: ATORVASTATIN 40 MG TAB PO SCH (08:25)
[2020-09-24] MEDS: ASPIRIN 81 MG CHEW PO SCH (08:25)
--- NOTE | 2020-09-24 10:51 | Surgery Progress Note ---
Date of Service September 24, 2020 Assessment & Plan (1) Postoperative ileus: Improving but still distended. Will keep on full liquids today. Continue to encourage activity. Present on Admission?: Yes Admission and Anticipated Discharge Date Admission Date: September 20, 2020 Subjective Feels well. Walking in hallway. Continues to pass flatus and having bowel movements. Tolerated full liquid diet but still distended. No complaints of pain, just expected soreness at incision. Review of Systems Review of Systems: All systems reviewed & are unremarkable except as noted in HPI & below Physical Exam Constitutional: WD/WN, vitals as above Respiratory: normal respiratory effort, lungs clear to auscultation Cardiovascular: RRR, no murmur, no edema Gastrointestinal (Abdomen): Inspection/Auscultation: abdomen normal to inspection, + abdomen distended, normal bowel sounds and + abdominal surgical incision (clean and intact) Percussion/Palpation: abdomen soft; abdomen nontender and no guarding Neurologic: moves all extremities Psychiatric: A+Ox3, euthymic affect Results & Data ([facility]) Vital Signs (Past 12 Hours) Vital Signs Temp Pulse Resp BP Pulse Ox 09/24/20 07:46 36.2 C L 76 18 127/67 96 Laboratory Results Abnormal lab results 09/24/20 Range/Units 05:44 Creatinine 0.49 L (0.6-1.4) mg/dl
[2020-09-24] MEDS: TAMSULOSIN HCL 0.4 MG CAP PO SCH (20:20)
[2020-09-24] MEDS: NIACIN EXTENDED REL 500 MG TABCR PO SCH (20:20)
[2020-09-25] MEDS: LANSOPRAZOLE 30 MG SOLTAB PO SCH (08:58)
[2020-09-25] MEDS: ASPIRIN 81 MG CHEW PO SCH (08:58)
[2020-09-25] MEDS: DOCUSATE SODIUM 100 MG CAP PO SCH (08:58)
[2020-09-25] MEDS: lisinopril 5 MG TAB PO SCH (08:59)
[2020-09-25] MEDS: ATORVASTATIN 40 MG TAB PO SCH (08:59)
[2020-09-25] MEDS: EZETIMIBE 10 MG TABLET PO SCH (09:00)
[2020-09-25] MEDS: D5W AND 1/2NSS + 20MEQ KCL 20 MEQ/1,000 ML BAG IV SCH (09:05)
--- NOTE | 2020-09-25 09:33 | Surgery Progress Note ---
Date of Service September 25, 2020 Assessment & Plan (1) Incisional hernia: POD # 7 s/p repair of recurrent incisional hernia with mesh - pain minimal - distention improving - + bowel function, no n/v Plan: Okay to advance to low fiber diet for lunch continue to ambulate discontinue IV fluids Tylenol prn pain (has not required any narcotics) possible discharge home this evening (2) Postoperative ileus: Improving but still distended. Plan as above Dr. Castillo has seen patient independantly and agrees with above. Admission and Anticipated Discharge Date Admission Date: September 20, 2020 Subjective feeling good passing gas and liquid bowel movements no abdominal pain, has not required narcotic pain medication tolerated full liquids yesterday, no n/v no chest pain/shortness of breath abdomen feels better when ambulating Physical Exam Constitutional: WD/WN, vitals as above Respiratory: normal respiratory effort; no respiratory distress and no labored breathing Gastrointestinal (Abdomen): Inspection/Auscultation: + abdomen distended (mild) Percussion/Palpation: abdomen soft; abdomen nontender, no guarding and abdomen not rigid Skin: no rashes, warm and dry + incision (clean/dry/intact, shamar present) Psychiatric: A+Ox3, euthymic affect Results & Data ([facility]) Vital Signs (Past 12 Hours) Vital Signs Temp Pulse Resp BP Pulse Ox 09/25/20 07:48 36.4 C L 83 16 137/79 95 09/24/20 23:03 36.6 C 71 17 109/60 94 (1) Incisional hernia Obstruction and gangrene presence: without obstruction or gangrene Qualified Code(s): K43.2 - Incisional hernia without obstruction or gangrene
--- NOTE | 2020-10-04 17:13 | Coding Query ---
Your help is needed for correct coding of this account; please clarify if the patients Post-operative Ileus was: ( ) expected out of the surgery ( ) unexpected complication from the surgery (X )other please specify, no complication after surgery, pt developed ileus, I saw pt at clinic today, pt is doing fine, no abdominal pain, no nausea, no vomiting, tolerated diet, Thank you [facility]
--- NOTE | 2020-10-06 09:39 | Discharge Summary ---
Date of Service October 06, 2020 Admission HPI Per Admitting Provider Patient presented to [facility] for elective outpatient recurrent incisional hernia repair with mesh by Dr. Castillo. Patient had history of incisional hernia repair with mesh infection and required mesh removal. Hernia was large with bowel present but no signs of obstruction. Principal Diagnosis Large incisional hernia without obstruction containing bowel Discharge Data Allergies Allergy/AdvReac Type Severity Reaction Status Date / Time No Known Allergies Allergy Unknown Verified 09/18/20 05:57 Procedures Performed Operation Date: 09/18/20 07:00 Actual Procedures p Open Ventral Hernia Repair with Mesh(Not Applicable) - Latonia Castillo MD Hospital Course (1) Incisional hernia: Patient was taken to operating room for open recurrent incisional hernia repair by Dr. Castillo. Patient was found to have three separate hernia defects with large defect containing bowel. Hernias were connected and one large piece of mesh was used. The patient tolerated procedure well and was admitted to hospital for postoperative pain control and observation given extent of hernia. POD# 1 patient was doing well, diet advanced to clear liquids. No return of bowel function yet. POD # 2 patient developed nausea and had emesis x 2. Patient also had abdominal distention. A KUB showed small and large bowel distention consistent with Ileus. Large bowel measured up to 10 cm. An NGT was placed and patient converted to NPO for bowel rest. Patient's pain was minimal and distention slowly improved as bowel function began. NGT was removed and diet was started on clear liquids on POD # 4. Diet was slowly advanced to low fiber diet which patient tolerated on POD # 7. He was passing gas and having liquid bowel movements. On POD # 7 he was discharged home in stable condition. (2) Postoperative ileus: Hospital course as above. Total Time Total Time Spent Total Time Spent (In Minutes): 30 Total Time Includes: Examination of the Patient, Discharge Planning and Medication Reconciliation Discharge Plan Discharge Items Patient Disposition: Home - Self-Care Reason For Visit: Recurrent Ventral Incisional Hernia Discharge Diagnosis: Recurrent Incisional Hernia Postoperative Ileus Activity: Per Instructions section Non-emergency contact: Surgeon Call non-emergency contact if: your pain is not controlled, your pain is worsening, your pain is concerning for you, you have a fever, your temperature is above 101, your wound has increased redness, your wound has increased drainage and your wound pain has increased Follow-up/Referrals: Kofi Laurent, [Primary Care Provider] - 10/03/20 3:00 pm Diet: Low Fiber Addtl Attending Provider Instructions: General surgery discharge instructions: - No heavy lifting over 10 pounds for at least 6 weeks - No strenuous activity until cleared by surgeon - No submerging incision underwater for 2 weeks ( bathing, swimming, hot tubs) - No driving while taking narcotic pain medication or until you are pain free - You may shower. Allow water to run over incision and pat dry. Keep incision covered so the hoang are not catching on your clothes. - Hoang will be removed in office. - May take extra strength Tylenol or Ibuprofen as needed for pain -650 mg Tylenol every 6 hours as needed - 600 mg of Ibuprofen every 6 hours as needed (take with food) - wear abdominal binder or belt for compression and support - Walking is encouraged daily to prevent blood clots from forming in your legs as well as increasing your gut motility. - Follow-up with Dr. Castillo as already scheduled or call office at [phone] to make an appointment. - Would recommend low fiber diet for one week given the distention in your bowels and then advance to regular diet as tolerated. - You may take [id number] stool softener (Colace) if your stools become hard or if you are straining. Pending Studies at Discharge: No Stand-Alone Forms: My [facility], Smoking Cessation Medications and DC Order Prescriptions: Continued aspirin [Aspirin Low Dose] 81 mg Tablet,Delayed Release (Dr/Ec) 81 mg PO QAM RF: 0 tamsulosin [Flomax] 0.4 mg Capsule 0.4 mg PO PM RF: 0 atorvastatin 40 mg Tablet 40 mg PO QAM RF: 0 pantoprazole 40 mg Tablet,Delayed Release (Dr/Ec) 40 mg PO QAM RF: 0 lisinopril 5 mg Tablet 5 mg PO QAM RF: 0 ezetimibe [Zetia] 10 mg Tablet 10 mg PO QAM RF: 0 niacin 1,000 mg Tablet Extended Release 1,000 mg PO HS RF: 0 Discharge Orders: Discharge Order (Routine); Ordered 09/25/20 Ordered By: Haily Harding/Other Patient Handouts: Low-Fiber Diet Admission Data Admit Date/Time: 09/20/20 10:05 Attending Provider: Latonia Castillo Admit Provider: Latonia Castillo Primary Care Provider: Kofi Laurent Other Interventions: Discharge Summary Assessment (RN) Last Done: 09/25/20 13:20
== END 2020-09-25 16:29 | disposition home or self-care (01) | DRG 354 ==
LOC: 3N 05:26 → ASU 05:26